=== PATIENT | female | born 1960 | race Caucasian/White ===

== ENCOUNTER 2017-04-20 11:31 | Emergency (ER) | payer OTHER ==
[2017-04-20 11:46] VITALS: TEMP 98.8
[2017-04-20] MEDS ORDERED: AMOXICILLIN/CLAVULANATE POT 875/125 MG TAB PO ONE (13:18)
[2017-04-20] MEDS ORDERED: IBUPROFEN 600 MG TAB PO ONE (13:18)
--- NOTE | 2017-04-20 13:29 | EDPHY ---
H & P Stated Complaint: Bit by own dog (Mastiff) L elbow,R leg HPI/ROS: Chief complaint: Dog bite History of present illness: This is a 57-year-old female who presents to the emergency department for evaluation and treatment of dog bites. Patient reports her own dogs, 2 large Mastiffs got into a fight this morning. She attempted to break them up. She was bit on the right inner thigh and the left elbow. She has noted a large wound to the right thigh and a small wound to the left elbow. She is concerned as there is some numbness and tingling in her left hand particularly the 4th and 5th finger. She denies other injuries from this. 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 Her tetanus is up-to-date. The dog's are reported as healthy and immunizations are up-to-date. - Personal History Current Tetanus Diphtheria and Acellular Pertussis (TDAP): Yes - Medical/Surgical History Other PMH: myasthenia gravis - Social History Smoking Status: Current every day smoker - Physical Exam Exam: General Appearance: Alert, nontoxic Neurological: Alert and oriented x4. Decreased sensation in the left 4th and 5th finger otherwise sensation intact throughout the body. Strength is intact throughout the body. Skin: Patient has a 7 cm wound to the middle aspect of the right thigh. Patient is a 1 cm laceration over the olecranon of the left elbow. Musculoskeletal: Patient is moving all extremities without difficulty. She is ambulating well. Constitutional: Initial Vital Signs Temperature (C) 37.1 C 04/20/17 11:44 Heart Rate 81 04/20/17 11:44 Respiratory Rate 18 04/20/17 11:44 Blood Pressure 151/94 H 04/20/17 11:44 O2 Sat (%) 95 04/20/17 11:44 O2 Delivery Mode Room Air Allergies/Adverse Reactions: iodine Allergy (Mild, Verified 04/20/17 11:42) Rash Penicillins Allergy (Mild, Verified 04/20/17 11:42) Rash Home Medications: Medication Instructions Recorded Pyridostigmine [place] [Mestinon 60 mg PO BID PRN 06/20/13 60mg (RX)] Amoxicillin/Clavulanate Pot 875 mg PO BID #14 tab 04/20/17 [Augmentin 875 MG TAB (*)] Hydrocodone/APAP 5/325 [[place] 1 tab PO Q6H #10 tab 04/20/17 5/325 (*)] Medical Decision Making - Diagnostics Imaging Results: Imaging Impressions Elbow X-Ray 04/20/17 11:49 Impression: Negative left elbow radiographs for fracture or foreign object. Subcutaneous emphysema posteriorly.. Femur X-Ray 04/20/17 13:09 Impression: 1. Mild soft tissue injury posteriorly. Otherwise normal. Imaging: I viewed and interpreted images myself Procedures: Procedure: Laceration repair. Verbal consent was obtained from the patient. The 7 cm laceration on the left thigh was anesthetized in the usual fashion. The wound was irrigated, draped and explored to its base with a gloved finger. There were no deep structures involved. No tendon injury was identified. Attention was placed on the wound using 3 0 Ethilon, 5 simple interrupted sutures which were used to apply tension to the wound with very loose approximation. The procedure was performed by myself. ED Course/Re-evaluation: Patient is discussed with my primary supervising physician Dr. Iman Wise. Patient presents to the emergency department for multiple dog bites. Further there is concern for neurologic injury to her left arm. Her tetanus is up-to- date. She is started on Augmentin. The wounds have been anesthetized and thoroughly irrigated. Given size of the wound to the right thigh sutures were placed to pull tension with very loose approximation, the wound to her left elbow was left opened, we discussed allowing these wounds to heal by secondary intention or delayed primary closure given the high risk for infection. I have consulted with Orthopedics, Dr. Tuan Landis. Patient can follow up for recheck especially of the possible nerve injury. Patient will be discharged home. Home care is discussed including wound management, the use of antibiotics and pain management. She is given information on the wound care clinic. She is asked to return for delayed primary closure. Patient voiced understanding and agreement with plan. Differential Diagnosis: Included but not limited to laceration, deep structure injury, foreign body contamination - Data Points Medications Given: Discontinued Medications Amoxicillin/Clavulanate Potassium (Augmentin 875mg) 875 mg PO EDNOW ONE PRN Reason: Protocol Stop: 04/20/17 13:19 Last Admin: 04/20/17 13:26 Dose: 875 mg Ibuprofen (Motrin) 600 mg PO EDNOW ONE Stop: 04/20/17 13:19 Last Admin: 04/20/17 13:26 Dose: 600 mg Departure - Departure Disposition: Home, Routine, Self-Care Clinical Impression: Nerve injury Dog bite Qualifiers: Encounter type: initial encounter Qualified Code(s): W54.0XXA - Bitten by dog, initial encounter Condition: Good Instructions: Animal Bite (ED), Acute Wounds (ED) Additional Instructions: Follow-up with orthopedics for continued evaluation and care. Please discuss your possible nerve injury with them In regards to pain control see the following: Use ibuprofen [600] mg [3] times a day for the next 2-3 days for pain In addition You have been prescribed [[place]] for pain. [[place]] contains Tylenol, do not take extra Tylenol/acetaminophen/Apap with it. It is sedating. You can return in 3-5 days for delayed primary closure as discussed If symptoms worsen or new symptoms develop return to the emergency room for recheck Referrals: Ralph Prasad MD [Primary Care Provider] - As per Instructions Tuan Landis MD [Medical Doctor] - As per Instructions [facility] [Outside] - As per Instructions Prescriptions: Amoxicillin/Clavulanate Pot [Augmentin 875 MG TAB (*)] 875 mg PO BID #14 tab Hydrocodone/APAP 5/325 [[place] 5/325 (*)] 1 tab PO Q6H #10 tab
[2017-04-20 15:48] VITALS: BP 138/74; PULSE 80; RESP 16; O2SAT 98
== END 2017-04-20 15:48 | disposition home or self-care (01) ==
PROC: 0HQHXZZ Repair Right Upper Leg Skin, External Approach (ICD-10-PCS; principal; 2017-04-20)
DX: S74.11XA Injury of femoral nerve at hip and thigh level, right leg, initial encounter (principal); F17.200 Nicotine dependence, unspecified, uncomplicated; W54.0XXA Bitten by dog, initial encounter